=== PATIENT | male | born 1945 | race Caucasian/White ===

== ENCOUNTER 2020-02-02 14:37 | Outpatient (CLI) | payer MEDICARE, OTHER | END 2020-02-02 23:59 | disposition critical access hospital (66) | LOC: EMS 14:37 | PROVIDERS: ATTEND Surgery | DX: R29.810 Facial weakness (principal); R53.1 Weakness | CPT/HCPCS: A0425; A0427 ==

== ENCOUNTER 2020-02-02 14:53 | Emergency (ER) | payer MEDICARE, OTHER ==
--- NOTE | 2020-02-02 14:56 | ED Physician Documentation ---
PD HPI FOCAL NEURO - Stated complaint Stated Complaint: STROKE LIKE SYMPTOMS - History obtained from History obtained from: Patient, EMS - History of Present Illness Timing - onset: How many minutes ago (45) Timing - duration: Minutes (30) Timing - details: Abrupt onset, Now resolved (resolved enroute by EMS. No symptoms now.) Severity of deficit: Severe Weakness: Face, Arm, Leg, Left Numbness: Face, Arm, Leg, Left Associated symptoms: No: Headache, Nausea / vomiting, Syncope, Fall, Head injury, Fever Contributing factors: negative: Anticoagulated, Vascular dz, Atrial fibrillation Baseline status: positive: A&OX3, ambulatory, indep Similar symptoms before: Has not had sx before Review of Systems Constitutional: denies: Fever Nose: denies: Rhinorrhea / runny nose, Congestion Throat: denies: Sore throat Cardiac: denies: Chest pain / pressure, Palpitations Respiratory: denies: Cough GI: denies: Nausea, Vomiting, Diarrhea Skin: denies: Abrasion (s), Laceration (s) Neurologic: denies: Near syncope, Headache, Head injury PD PAST MEDICAL HISTORY - Past Medical History Cardiovascular: None Respiratory: None Neuro: Parkinson's (and has Neurologist at [facility] for this. ) Endocrine/Autoimmune: None GI: None - Present Medications Home Medications: Ambulatory Orders Medication Instructions Recorded Confirmed Acyclovir 400 mg PO TID PRN 02/02/20 02/02/20 Carbidopa/Levodopa [Rytary ER 1 tab QID 02/02/20 02/02/20 23.75 mg-95 mg Cap] Cholecalciferol [Vitamin D3] 2,000 unit DAILY 02/02/20 02/02/20 Magnesium 1 tab DAILY 02/02/20 02/02/20 Melatonin 5 mg PO QPM 02/02/20 02/02/20 Midodrine 5 mg DAILY 02/02/20 02/02/20 Mirabegron [Myrbetriq] 25 mg DAILY 02/02/20 02/02/20 Rasagiline [Azilect] 1 tab DAILY 02/02/20 02/02/20 Sildenafil Citrate 100 mg PO PRN 02/02/20 02/02/20 clonazePAM [Clonazepam] 1 tab QPM 02/02/20 02/02/20 - Allergies Allergies/Adverse Reactions: Allergies Allergy/AdvReac Type Severity Reaction Status Date / Time No Known Drug Allergies Allergy Verified 02/02/20 15:05 - Living Situation Living Situation: reports: With spouse/s.o. Living Arrangement: reports: At home - Social History Does the pt smoke?: No Does the pt drink ETOH?: No Does the pt have substance abuse?: No - Family History Family history: denies: Cerebral aneurysm - POLST Patient has POLST: No PD ED PE NORMAL - Vitals Vital signs reviewed: Yes - General General: Alert and oriented X 3, No acute distress, Well developed/nourished - HEENT HEENT: Atraumatic, Pharynx benign - Neck Neck: Supple, no meningeal sign, No adenopathy, No bruit - Cardiac Cardiac: RRR, No murmur - Respiratory Respiratory: Clear bilaterally - Abdomen Abdomen: Soft, Non tender - Male Male : Deferred - Rectal Rectal: Deferred - Back Back: No CVA TTP - Derm Derm: Normal color, Warm and dry - Extremities Extremities: No deformity, No tenderness to palpate, Normal ROM s pain, No edema, No calf tenderness / cord - Neuro Neuro: Alert and oriented X 3, pricing lead 2-12 intact, No motor deficit, No sensory deficit, Normal speech, Other Eye Opening: Spontaneous Motor: Obeys Commands Verbal: Oriented GCS Score: 15 NIHSS - Level of Consciousness Level of consciousness: (0) Alert, Keenly responsive LOC Questions: (0) Answers both Q's correct LOC Commands: (0) Performs both correctly - Gaze Best Gaze: (0) Normal - Visual Visual: (0) No loss - Facial Palsy Facial Palsy: (0) Normal, symmetrical movement - Motor Arms (both separate) Motor Arm (right): (0) No drift Motor Arm (left): (0) No drift - Motor Legs (both separate) Motor Leg (right): (0) No drift Motor Leg (left): (0) No drift - Limb Ataxia Limb Ataxia: (0) Absent - Sensory Sensory: (0) Normal - Best Language Best Language: (0) No aphasia - Dysarthria Dysarthria: (0) Normal - Extinction and Inattention (formally neg Extinction and inattention: (0) No abnormality - Total Score/Results Total Score/Result: 0 Results - Vitals Vitals: Vital Signs - 24 hr 02/02/20 02/02/20 02/02/20 15:16 15:34 15:35 Temperature 36.6 C Heart Rate 70 70 71 Respiratory 19 17 17 Rate Blood Pressure 125/64 125/67 125/64 O2 Saturation 100 100 100 02/02/20 02/02/20 02/02/20 16:05 16:35 17:05 Temperature Heart Rate 70 68 64 Respiratory 16 15 16 Rate Blood Pressure 125/67 140/79 H 157/96 H O2 Saturation 99 100 100 02/02/20 02/02/20 02/02/20 17:35 17:48 17:53 Temperature Heart Rate 68 67 78 Respiratory 14 14 15 Rate Blood Pressure 177/93 H 179/102 H 161/98 H O2 Saturation 100 100 99 Oxygen O2 Source Room air - EKG (time done) 15:11 Rate: Rate (enter#) (69) Rhythm: NSR [place]: Normal Intervals: Normal MT QRS: Normal Ischemia: Normal ST segments. No: ST elevation c/w ischemia, ST depression - Labs Labs: Laboratory Tests 02/02/20 02/02/20 02/02/20 15:12 15:12 15:12 WBC 5.1 RBC 3.66 L Hgb 12.3 L Hct 35.8 L MCV 97.8 H MCH 33.6 H MCHC 34.4 RDW 13.3 Plt Count 132 MPV 9.5 Neut # (Auto) 2.6 Lymph # (Auto) 1.8 [place] # (Auto) 0.5 Eos # (Auto) 0.1 Baso # (Auto) 0.0 Absolute Nucleated RBC 0.00 Nucleated RBC % 0.0 ESR PT INR Sodium 133 L Potassium 4.2 Chloride 99 L Carbon Dioxide 26 Anion Gap 8.0 BUN 22 H Creatinine 1.0 Estimated GFR (MDRD) 73 L Glucose 133 H POC Whole Bld Glucose Calcium 8.7 Magnesium 2.2 Total Bilirubin 2.1 H AST 27 ALT < 10 L Alkaline Phosphatase 69 Total Protein 5.9 L Albumin 3.9 Globulin 2.0 L Albumin/Globulin Ratio 2.0 Lipase 40 TSH 1.54 Ethyl Alcohol < 5.0 02/02/20 02/02/20 02/02/20 15:12 15:12 15:13 WBC RBC Hgb Hct MCV MCH MCHC RDW Plt Count MPV Neut # (Auto) Lymph # (Auto) [place] # (Auto) Eos # (Auto) Baso # (Auto) Absolute Nucleated RBC Nucleated RBC % ESR 5 PT 11.9 INR 1.0 Sodium Potassium Chloride Carbon Dioxide Anion Gap BUN Creatinine Estimated GFR (MDRD) Glucose POC Whole Bld Glucose 116 H Calcium Magnesium Total Bilirubin AST ALT Alkaline Phosphatase Total Protein Albumin Globulin Albumin/Globulin Ratio Lipase TSH Ethyl Alcohol - Rads (name of study) head CT Radiology: Prelim report reviewed, Discussed with rads (prior right cerebellar CVA; no acute process), See rad report head/neck angio Radiology: Prelim report reviewed, Discussed with rads (right M1 into M2 thrombus with some collateral formation distal. ), See rad report PD MEDICAL DECISION MAKING - ED course Complexity details: reviewed results (No acute changes on regular CT scan. His angios shows a large thrombus clot burden at the right M1 M2 M2 distribution. There is some distal collateral flow which would account likely for his restored symptoms or improved symptoms. However there is still a large clot burden at risk for more definitive occlusion. I talked with Dr. Lopez who is on for [facility] stroke neurology who will interview the patient and examined by tele- stroke and is advocating alteplase reperfusion and transfer for possible endovascular intervention.), considered differential (Also consideration of TIA versus CVA. We will get imaging studies urgently.), d/w patient, d/w senior research consultant (Dr. Lopez, Stroke Neurology at [facility]) - Critical Care Time(min): 45 Time Includes: Direct patient care, Reassess patient, Document care, Medical consult Data interpretation: Labs, See progress note Departure - Departure Disposition: 02 Transfer Acute Care Hosp Clinical Impression: Acute left-sided weakness CVA (cerebral vascular accident) Qualifiers: CVA mechanism: thrombosis Precerebral and cerebral artery: middle cerebral artery Laterality of affected vessel: right Qualified Code(s): I63.311 - Cerebral infarction due to thrombosis of right middle cerebral artery Condition: Stable Record reviewed to determine appropriate education?: Yes Discharge Date/Time: 02/02/20 18:15
[2020-02-02] MEDS ORDERED: SODIUM CHLORIDE 0.9% 1,000 ML IV ONE (14:57)
[2020-02-02] MEDS ORDERED: IOVERSOL 320 100 ML VIAL IVP ONE (15:17)
[2020-02-02 15:20] LABS: BASOPHILS % (AUTO) 0.4 %; EOSINOPHILS # (AUTO) 0.1 10^3/uL (0.0-0.7); EOSINOPHILS % (AUTO) 1.8 %; HGB - HEMOGLOBIN 12.3 g/dL (14.0-18.0); LYMPHOCYTES # (AUTO) 1.8 10^3/uL (1.5-3.5); LYMPHOCYTES % (AUTO) 35.9 %; MEAN CORPUSCULAR HEMOGLOBIN 33.6 pg (27.0-31.0); MEAN CORPUSCULAR HGB CONC 34.4 g/dL (32.0-36.0); MEAN CORPUSCULAR VOLUME 97.8 fL (80.0-94.0); MEAN PLATELET VOLUME 9.5 fL (7.4-11.4); MONOCYTES # (AUTO) 0.5 10^3/uL (0.0-1.0); MONOCYTES % (AUTO) 10.4 %; NEUTROPHILS # (AUTO) 2.6 10^3/uL (1.5-6.6); NEUTROPHILS % (AUTO) 51.3 %; PLT - PLATELET COUNT 132 10^3/uL (130-450); RED BLOOD COUNT 3.66 10^6/uL (4.70-6.10); RED CELL DISTRIBUTION WIDTH 13.3 % (12.0-15.0); WHITE BLOOD COUNT 5.1 x10^3/uL (4.8-10.8)
[2020-02-02 15:25] LABS: PT - PROTHROMBIN TIME 11.9 secs (9.9-12.6)
--- NOTE | 2020-02-02 15:32 | CT Report ---
Reason: right facial droop/arm and leg weakness acute Procedure Date: 02/02/2020 Accession Number: [id number] / [id number] Procedure: CT - Head W/O Stroke Protocol CPT Code: Final Report FULL RESULT: CT HEAD WITHOUT CONTRAST INDICATION: 74-year-old male. Right facial droop and arm/leg weakness. Concern for acute CVA. TECHNIQUE: Sequential 5 mm axial images were obtained through the brain. In accordance with CT protocol optimization, one or more of the following dose reduction techniques were utilized for this exam: automated exposure control, adjustment of mA and/or KV based on patient size, or use of iterative reconstructive technique. COMPARISON: None. FINDINGS: There is generalized prominence of the cerebral cortical sulci, considered within normal limits for stated age. Ventricular size is normal. No hydrocephalus. There is excessive noise (quantum mottle artifact) on brain window images, presumably related to low-dose technique. This decreases the sensitivity to detection of subtle parenchymal abnormality such as acute ischemic infarction. However, grossly the rothman-white differentiation in the supratentorial brain appears preserved. Well-defined, thin, wedge-shaped focus of encephalomalacia is demonstrated posteriorly in the right cerebellum, consistent with the sequela of remote, embolic type ischemic infarction. There is no intracranial hemorrhage or abnormal extra-axial fluid collection. No mass effect or midline shift. The skull and skull base appear intact. The middle ear cavities and mastoid air cells appear well aerated and clear. The imaged paranasal sinuses appear well aerated and clear. IMPRESSION: 1. A focus of encephalomalacia is identified in the posterior right cerebellum, consistent with the sequela of remote, embolic type infarction. 2. No acute intracranial pathology is identified. In particular, there is no intracranial hemorrhage, and there is no CT evidence of an acute large vessel territory cortical infarction (the ASPECTS appears to equal 10 bilaterally). However, it should be noted that early and small infarctions can be missed on CT. Therefore consider further evaluation with MRI as clinically warranted. The critical test notification system was initiated by Dr. Hieu Lieberman at 03:20 PM on 02/02/2020. The above critical test findings were discussed with Dr. Tino Segura by Dr. Hieu Lieberman at 03:30 PM on 02/02/2020.
[2020-02-02 15:43] LABS: ALBUMIN 3.9 g/dL (3.2-5.5); ALKALINE PHOSPHATASE 69 IU/L (42-121); ALT ALANINE AMINOTRANSFERASE < 10 IU/L (10-60); AST ASPARTATE AMINOTRANSFERASE 27 IU/L (10-42); BILIRUBIN,TOTAL 2.1 mg/dL (0.2-1.0); BUN - BLOOD UREA NITROGEN 22 mg/dL (6-20); CALCIUM 8.7 mg/dL (8.5-10.3); CARBON DIOXIDE - CO2 26 mmol/L (21-32); CHLORIDE 99 mmol/L (101-111); GLUCOSE 133 mg/dL (70-100); LIPASE 40 U/L (22-51); MAGNESIUM 2.2 mg/dL (1.7-2.8); SODIUM 133 mmol/L (135-145); TOTAL PROTEIN 5.9 g/dL (6.7-8.2)
--- NOTE | 2020-02-02 16:05 | CT Report ---
Reason: right facial droop and arm/leg weakness Procedure Date: 02/02/2020 Accession Number: [id number] / [id number] Procedure: CT - ANGIO NECK W CPT Code: Final Report FULL RESULT: CT ANGIOGRAM NECK INDICATION: 74-year-old male. Right facial droop and right arm and leg weakness today. No symptoms at time of exam. TECHNIQUE: 80 cc of Optiray 320 contrast were injected at a rapid rate through a large bore, right antecubital intravenous catheter. The neck was scanned helically and the data was reconstructed into 0.5 mm axial images. In addition, MIP reconstructions have been generated in multiple projections to allow better assessment of the extracranial carotid and vertebral arteries. COMPARISON: None. FINDINGS: There is a four-vessel aortic arch, the left vertebral artery arising directly from the arch as the third branch. No significant stenoses are identified in the first order, supra-aortic arteries. Right Carotid Artery: There is beam hardening artifact from dense contrast in adjacent venous structures that limits assessment of the common carotid artery, particularly the proximal common carotid artery. Grossly no pathology is demonstrated. There is minor, circumferential wall thickening at the bifurcation, likely representing noncalcified atherosclerotic plaque. No associated stenosis. The extracranial ICA is widely patent throughout. Left Carotid Artery: There is minor, partially calcified plaque at the carotid bifurcation without associated stenosis. Right Vertebral Artery: This is the dominant vertebral artery in this individual. It appears patent from its origin to its distal V3 segment without significant narrowing. Left Vertebral Artery: Mildly hypoplastic. Patent from origin to distal V3 segment without significant focal narrowing. IMPRESSION: Unremarkable study. 1. There is atherosclerotic disease at the carotid bifurcations without associated stenosis. 2. No evidence of dissection or significant stenosis in the extracranial vertebral arteries.
--- NOTE | 2020-02-02 16:09 | CT Report ---
Reason: right facial droop, arm/leg weakness acutely Procedure Date: 02/02/2020 Accession Number: [id number] / [id number] Procedure: CT - ANGIO HEAD W/WO CPT Code: Final Report FULL RESULT: CT ANGIOGRAM HEAD AND POSTCONTRAST HEAD CT INDICATION: 74-year-old male. Right facial droop and right arm/leg weakness today. No symptoms at time of exam. TECHNIQUE: CT angiogram head 80 cc of Optiray 320 contrast were injected at a rapid rate through a large bore, antecubital intravenous catheter. The head was scanned helically during arterial phase. The data was reconstructed into 0.5 mm axial images. In addition, MIP reconstructions have been generated in multiple projections to allow better evaluation of the intracranial arteries. Postcontrast head CT Sequential 5 mm axial images were obtained through the brain following the CT angiogram. In accordance with CT protocol optimization, one or more of the following dose reduction techniques were utilized for this exam: automated exposure control, adjustment of mA and/or KV based on patient size, or use of iterative reconstructive technique. COMPARISON: None. FINDINGS: CT angiogram head There is minor calcified atherosclerotic plaque in the carotid siphons without significant associated ICA stenosis. No ICA aneurysm is identified. The A1 segment for the left anterior cerebral artery is very mildly hypoplastic with larger right A1 segment. An anterior communicating artery is demonstrated. There appears to be good filling of the A2 and distal ELLE branches bilaterally. No obvious ELLE branch occlusion is identified. The left middle cerebral artery is unremarkable. No aneurysm is demonstrated and there is no obvious occlusion or hemodynamically significant stenosis affecting the main branches of the left MCA. On the right there appears to be intraluminal thrombus in the very distal most aspects of the M1 segment, extending into the proximal M2 branches for both the anterior and posterior division. The posterior division is significantly larger. The intraluminal thrombus occludes the proximal M2 branch for the posterior division over a distance of roughly 10 mm (see image 104 of series #11). There is intraluminal contrast more distally in the main trunk for the posterior division, probably filling in a retrograde fashion through leptomeningeal collaterals. The M2 branch for the anterior division is occluded over a distance of roughly 4-5 mm from the origin. There is filling more distally, also probably retrograde and through leptomeningeal collaterals. Posterior circulation: The vertebral arteries and PICAs are patent. The basilar artery is widely patent throughout. There is filling of both superior cerebellar arteries. The small caliber limits evaluation for possible stenosis. The main branches of the left [employer]IST are widely patent. The P1 segment for the right posterior cerebral artery is developmentally absent. There is a large right posterior communicating artery that supplies the P2 and distal right [employer]IST branches. This represents a known anatomical variant ( origin of the right [employer] SPECIALIST). There appears to be a small left posterior communicating artery. No aneurysms are seen arising from the basilar artery trunk or apex. Postcontrast head CT No enhancing space-occupying mass lesion is demonstrated. There appears to be normal intravascular contrast enhancement in the dural venous sinuses and deep venous structures. IMPRESSION: CTA head 1. There is intraluminal thrombus in the distal M1 segment of the right MCA with extension into the proximal M2 branches for the anterior and posterior divisions. The posterior division is largest. The intraluminal thrombus occludes the proximal 10 mm. There is intraluminal contrast distal to this level, the artery probably filling in a retrograde fashion through leptomeningeal collaterals. 2. Otherwise unremarkable intracranial CT angiogram. Postcontrast head CT No enhancing space-occupying mass lesion is demonstrated. The call report notification system was initiated by Dr. Hieu Lieberman at 03:57 PM on 02/02/2020. Dr. Segura was busy providing patient care and was not available to receive a preliminary report for this examination. For this reason a preliminary report was called to Roopa (ED charge nurse) following interpretation on 02/02/2020 at approximately 1605.
[2020-02-02] MEDS ORDERED: ALTEPLASE 81 MG in WATER FOR INJECTION,STERILE 100 ML IV STA (16:59)
[2020-02-02] MEDS ORDERED: ENALAPRILAT 1.25 MG/ML VIAL IVP STA (17:43)
[2020-02-02 17:53] VITALS: BP 161/98
[2020-02-02] MEDS ORDERED: ALTEPLASE IV ONE (18:00)
[2020-02-02] MEDS ORDERED: ALTEPLASE 8.4 MG in WATER FOR INJECTION,STERILE 8.4 ML IV ONE (18:00)
[2020-02-02] MEDS ORDERED: WATER FOR INJECTION STERILE IV ONE (18:00)
== END 2020-02-02 18:15 | disposition short-term general hospital (02) ==
LOC: ED 14:53
DX: I63.311 Cerebral infarction due to thrombosis of right middle cerebral artery (principal); G20 Parkinson's disease
CPT/HCPCS: 36415; 70450; 70496; 70498; 80053; 83690; 83735; 84443; 85025; 85610; 85651; 93005; 99285; 99291; J2997; Q9967; 80320

== ENCOUNTER 2023-08-11 09:18 | Outpatient (CLI) | payer MEDICARE, OTHER ==
--- NOTE | 2023-08-11 15:19 | XRAY Report ---
PROCEDURE: Hips 2V BILAT INDICATIONS: SACROILIAC JOINT PAIN,LEFT, HIP PAIN LEFT TECHNIQUE: 2 views of the hip were acquired. COMPARISON: None. FINDINGS: Bones: No fractures or dislocations. No suspicious bony lesions. Mild hip joint space narrowing a nd periarticular osteophyte formation bilaterally. Soft tissues: No suspicious soft tissue calcifications or masses. IMPRESSION: Bilateral hip osteoarthritis. No acute fracture. No osseous lesion. If symptoms and/or clinical suspi cion for pathology continue, further assessment with repeat plain films, or advanced imaging (e.g., C T, MRI, or bone scan) is recommended for further assessment. Reviewed by: Pollo Amaral MD on 08/11/2023 3:18 PM PST Approved by: Pollo Amaral MD on 08/11/2023 3:18 PM PST Station ID: [id number]
--- NOTE | 2023-08-11 15:19 | XRAY Report ---
PROCEDURE: Lumbar Spine Complete INDICATIONS: SACROILIAC JOINT PAIN,LEFT, HIP PAIN LEFT TECHNIQUE: 3 views of the lumbar spine were acquired. COMPARISON: None. FINDINGS: Bones: 5 [id number] vertebrae are present. There is normal bony alignment. No vertebral body compression fractures. No suspicious bony lesions. Soft tissues: Overlying bowel gas pattern is normal. No suspicious soft tissue calcifications. IMPRESSION: No acute fracture. No osseous lesion. If symptoms and/or clinical suspicion for patholog y continue, further assessment with repeat plain films, or advanced imaging (e.g., CT, MRI, or bone s can) is recommended for further assessment. Reviewed by: Pollo Amaral MD on 08/11/2023 3:18 PM PST Approved by: Pollo Amaral MD on 08/11/2023 3:18 PM PST Station ID: [id number]
== END 2023-08-11 09:19 | disposition home or self-care (01) ==
LOC: DI 09:18
PROVIDERS: ATTEND Family Medicine
DX: M53.3 Sacrococcygeal disorders, not elsewhere classified (principal); M16.0 Bilateral primary osteoarthritis of hip

== ENCOUNTER 2023-09-10 07:13 | Outpatient (CLI) | payer MEDICARE, OTHER | END 2023-09-10 07:14 | disposition short-term general hospital (02) | LOC: EMS 07:13 | DX: R06.03 Acute respiratory distress (principal); R09.89 Other specified symptoms and signs involving the circulatory and respiratory systems; I48.91 Unspecified atrial fibrillation | CPT/HCPCS: A0425; A0429 ==

== ENCOUNTER 2023-12-16 03:01 | Outpatient (CLI) | payer MEDICARE, OTHER | END 2023-12-16 03:02 | disposition critical access hospital (66) | LOC: EMS 03:01 | DX: T83.83XA Hemorrhage due to genitourinary prosthetic devices, implants and grafts, initial encounter (principal); N48.89 Other specified disorders of penis | CPT/HCPCS: A0425; A0429 ==

== ENCOUNTER 2023-12-16 03:21 | Emergency (ER) | payer MEDICARE, OTHER ==
--- NOTE | 2023-12-16 03:32 | ED Physician Documentation ---
History of Present Illness - Stated complaint Stated Complaint: CATH ISSUES - History obtained from History obtained from: Patient, EMS - Additonal information Additional information: The patient is brought to the emergency department by EMS for chief complaint of blood in urine after pulling on catheter. Patient states he does not really remember the incident. He does have Parkinson's disease and lives at home place, due to parkinsonian dementia. The patient denies any abdominal pain. Medics state that the staff stated they had see blood in his urine after he pulled the catheter they were concerned. The patient does take Eliquis. Medics have not noted any blood leaking out of the patient's urethra around the catheter. Patient has no complaints whatsoever. PD PAST MEDICAL HISTORY - Past Medical History Cardiovascular: None Respiratory: None Neuro: Parkinson's (and has Neurologist at [facility] [place] for this. ) Endocrine/Autoimmune: None GI: None : None HEENT: None Psych: None Musculoskeletal: None Derm: None - Past Surgical History Past Surgical History: Yes - Present Medications Home Medications: Ambulatory Orders Medication Instructions Recorded Confirmed Acyclovir 400 mg PO TID PRN 02/02/20 02/02/20 Carbidopa/Levodopa [Rytary ER 1 tab QID 02/02/20 02/02/20 23.75 mg-95 mg Cap] Cholecalciferol [Vitamin D3] 2,000 unit DAILY 02/02/20 02/02/20 Magnesium 1 tab DAILY 02/02/20 02/02/20 Melatonin 5 mg PO QPM 02/02/20 02/02/20 Midodrine [ProAmatine] 5 mg DAILY 02/02/20 02/02/20 Mirabegron [Myrbetriq] 25 mg DAILY 02/02/20 02/02/20 Rasagiline [Azilect] 1 tab DAILY 02/02/20 02/02/20 Sildenafil Citrate 100 mg PO PRN 02/02/20 02/02/20 clonazePAM [Clonazepam] 1 tab QPM 02/02/20 02/02/20 - Allergies Allergies/Adverse Reactions: Allergies Allergy/AdvReac Type Severity Reaction Status Date / Time No Known Drug Allergies Allergy Verified 02/02/20 15:05 - Social History Does the pt smoke?: No Smoking Status: Never smoker Does the pt drink ETOH?: No Does the pt have substance abuse?: No - Immunizations Immunizations are current?: Yes - POLST Patient has POLST: No PD ED PE NORMAL - Vitals Vital signs reviewed: Yes - General General: No acute distress, Well developed/nourished, Other (Alert, pleasant, conversant.) - HEENT HEENT: Atraumatic, PERRL, EOMI, Moist mucous membranes - Neck Neck: Supple, no meningeal sign - Respiratory Respiratory: No respiratory distress - Abdomen Abdomen: Soft, Non tender, Non distended - Male Male : 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 Mild bloody residue around penile glans and urethral meatus but no active oozing or leakage of blood around the catheter. Red urine noted in Maxwell catheter tubing, but no urine in bag.), Other - Derm Derm: Normal color, Warm and dry, No rash - Extremities Extremities: No deformity - Neuro Neuro: Alert and oriented X 3 - Psych Psych: Normal mood, Normal affect Results - Vitals Vitals: Vital Signs - 24 hr 12/16/23 03:27 Temperature 36.2 C L Heart Rate 83 Respiratory 16 Rate Blood Pressure 130/93 H O2 Saturation 98 Oxygen O2 Source Room air PD Medical Decision Making - ED course Complexity details: considered differential, d/w patient ED course: The patient appeared quite comfortable and he did not have any evidence of urethral traumatization. He did have a moderate amount of blood in his urine. I discussed the case with Dr. Chaparro Of urology, who recommended running a couple of liters through the patient's bladder over the next couple of hours to make sure that the urine mostly cleared. This was done and by the end of the second liter, his urine had mostly cleared. It was light red-tinged and no clot s were visible. I did not feel further testing would be helpful at this point. A new three-way catheter had been placed for the irrigation and was kept in place. Patient was stable for discharge home. We have discussed the need for follow-up with his urologist as scheduled and the usual indications for return. Departure - Departure Disposition: 01 Home, Self Care Clinical Impression: Hematuria Qualifiers: Hematuria type: gross Qualified Code(s): R31.0 - Gross hematuria Condition: Stable Instructions: ED Catheter Care Maxwell Comments: There is no evidence of any compromise of the urethra itself, and there is no blood leaking around the catheter. Your case has been discussed with the on-call urologist who requested that we irrigate your bladder with a couple liters of IV fluid and this was done.. You may have blood in Your urine for the next couple of days because of the Eliquis he is taking, but that should be expected to resolve on its own. Note to staff: The urologist has strongly recommended that the Eliquis be discontinued, secondary to the patient's inability to reason and leave his catheter alone in the setting of anticoagulation and increased risk of significant bleeding. However, this is a conversation that Mr. Jane and his guardians will have to have.
[2023-12-16] MEDS: LIDOCAINE 2% URO-JET 5 ML SYRINGE UR STA (04:17)
[2023-12-16 05:56] VITALS: O2SAT 100
[2023-12-16 09:48] VITALS: BP 132/74
== END 2023-12-16 09:48 | disposition home or self-care (01) ==
LOC: EDUNIT# → ED 03:21
DX: R31.0 Gross hematuria (principal); G20.A1 Parkinson's disease without dyskinesia, without mention of fluctuations; F02.80 Dementia in other diseases classified elsewhere, unspecified severity, without behavioral disturbance, psychotic disturbance, mood disturbance, and anxiety; Z79.01 Long term (current) use of anticoagulants
CPT/HCPCS: 51700; 99284

== ENCOUNTER 2023-12-16 09:50 | Outpatient (CLI) | payer MEDICARE, OTHER | END 2023-12-16 23:59 | disposition home or self-care (01) | LOC: EMS 09:50 | PROVIDERS: ATTEND Emergency Medicine | DX: T83.83XA Hemorrhage due to genitourinary prosthetic devices, implants and grafts, initial encounter (principal); R41.0 Disorientation, unspecified; G20.A1 Parkinson's disease without dyskinesia, without mention of fluctuations; F02.80 Dementia in other diseases classified elsewhere, unspecified severity, without behavioral disturbance, psychotic disturbance, mood disturbance, and anxiety | CPT/HCPCS: A0425; A0428 ==

== ENCOUNTER 2023-12-20 12:56 | Outpatient (CLI) | payer MEDICARE, OTHER | END 2023-12-20 23:59 | disposition critical access hospital (66) | LOC: EMS 12:56 | DX: T83.021A Displacement of indwelling urethral catheter, initial encounter (principal); N48.89 Other specified disorders of penis | CPT/HCPCS: A0425; A0429 ==

== ENCOUNTER 2023-12-20 13:16 | Inpatient (IN) | payer MEDICARE, OTHER ==
--- NOTE | 2023-12-20 13:55 | ED Physician Documentation ---
History of Present Illness - Stated complaint Stated Complaint: CATH ISSUES - Chief complaint Chief Complaint: General - History obtained from History obtained from: Patient, EMS - History of Present Illness Timing: Today Pain level max: 0 Pain level now: 0 - Additonal information Additional information: 78-year-old male brought in by EMS for "catheter issues". There is no other history available from EMS. Upon review of his chart has a history of Parkinson's dementia, there is blood in the urinary bag. He was seen here recently for same, had bladder irrigation performed. He is on a DOAC and does frequently tug at his catheter. No reports of fevers or vomiting. Patient lives in a memory care unit. Review of Systems Constitutional: denies: Fever, Chills GI: denies: Nausea, Vomiting Skin: denies: Rash Musculoskeletal: denies: Neck pain, Back pain Neurologic: denies: Headache PD PAST MEDICAL HISTORY - Past Medical History Past Medical History: Yes Cardiovascular: None Respiratory: None Neuro: Parkinson's Endocrine/Autoimmune: None GI: None : None HEENT: None Psych: None Musculoskeletal: None Derm: None - Past Surgical History Past Surgical History: Yes - Present Medications Home Medications: Ambulatory Orders Medication Instructions Recorded Confirmed Acyclovir 400 mg PO TID PRN 02/02/20 02/02/20 Carbidopa/Levodopa [Rytary ER 1 tab QID 02/02/20 02/02/20 23.75 mg-95 mg Cap] Cholecalciferol [Vitamin D3] 2,000 unit DAILY 02/02/20 02/02/20 Magnesium 1 tab DAILY 02/02/20 02/02/20 Melatonin 5 mg PO QPM 02/02/20 02/02/20 Midodrine [ProAmatine] 5 mg DAILY 02/02/20 02/02/20 Mirabegron [Myrbetriq] 25 mg DAILY 02/02/20 02/02/20 Rasagiline [Azilect] 1 tab DAILY 02/02/20 02/02/20 Sildenafil Citrate 100 mg PO PRN 02/02/20 02/02/20 clonazePAM [Clonazepam] 1 tab QPM 02/02/20 02/02/20 - Allergies Allergies/Adverse Reactions: Allergies Allergy/AdvReac Type Severity Reaction Status Date / Time No Known Drug Allergies Allergy Verified 12/20/23 13:23 - Social History Does the pt smoke?: No Smoking Status: Never smoker Does the pt drink ETOH?: No Does the pt have substance abuse?: No - Immunizations Immunizations are current?: Yes - POLST Patient has POLST: No PD ED PE NORMAL - Vitals Vital signs reviewed: Yes - General General: No acute distress, Other (Alert, oriented to person and place.) - HEENT HEENT: Moist mucous membranes - Neck Neck: Supple, no meningeal sign - Cardiac Cardiac: RRR, Strong equal pulses - Respiratory Respiratory: No respiratory distress, Clear bilaterally - Abdomen Abdomen: Soft, Non tender, Non distended - Male Male : Other (There is blood in the patient's diaper near the urethral meatus, there is bloody drainage in the Maxwell catheter bag) - Derm Derm: Warm and dry - Extremities Extremities: Normal ROM s pain - Psych Psych: Normal mood, Normal affect Results - Vitals Vitals: Vital Signs - 24 hr 12/20/23 13:23 Temperature 36.8 C Heart Rate 69 Respiratory 16 Rate Blood Pressure 110/80 O2 Saturation 95 Oxygen O2 Source Room air - Labs Labs: Laboratory Tests 12/20/23 12/20/23 14:50 14:50 WBC 10.1 RBC 3.69 L Hgb 10.9 L Hct 33.3 L MCV 90.2 MCH 29.5 MCHC 32.7 RDW 15.5 H Plt Count 119 L MPV 10.6 Neut # (Auto) 8.5 H Lymph # (Auto) 0.6 L Gregory # (Auto) 0.9 Eos # (Auto) 0.0 Baso # (Auto) 0.0 Absolute Nucleated RBC 0.00 Nucleated RBC % 0.0 Sodium 133 L Potassium 4.4 Chloride 101 Carbon Dioxide 23 Anion Gap 9.0 BUN 28 H Creatinine 0.9 Estimated GFR (MDRD) 82 L Glucose 103 Calcium 9.2 PD Medical Decision Making - ED course Complexity details: reviewed old records, reviewed results, re-evaluated patient, considered differential, d/w patient, d/w center consultant ED course: 78-year-old male with a history of Parkinson's dementia presents with hematuria. His Maxwell catheter was a 22 [place], three-way catheter that had become clogged with clots. The catheter was removed and replaced. Irrigation performed with large amount of clots removed. Upon review of his medication administration record from his facility, appears that they held the Eliquis for 2 days but restarted it last night and gave a dose this morning. Discussed the case with Dr. Chaparro, urology, recommends observation for continuous bladder irrigation and stopping the eliquis. He states that if the patient does not clear with CBI over the next 24 hours, he can see the patient on Friday in the hospital. Discussed the case with Dr. Menendez, hospitalist who accepts. This document was made in part using voice recognition software. While efforts are made to proofread this document, sound alike and grammatical errors may occur. Departure - Departure Disposition: ED Place in Observation Clinical Impression: Hematuria Qualifiers: Hematuria type: gross Qualified Code(s): R31.0 - Gross hematuria Condition: Stable
[2023-12-20 15:03] LABS: BASOPHILS % (AUTO) 0.2 %; EOSINOPHILS % (AUTO) 0.3 %; HCT - HEMATOCRIT 33.3 % (42.0-52.0); HGB - HEMOGLOBIN 10.9 g/dL (14.0-18.0); LYMPHOCYTES # (AUTO) 0.6 10^3/uL (1.5-3.5); LYMPHOCYTES % (AUTO) 5.5 %; MEAN CORPUSCULAR HEMOGLOBIN 29.5 pg (27.0-31.0); MEAN CORPUSCULAR HGB CONC 32.7 g/dL (32.0-36.0); MEAN CORPUSCULAR VOLUME 90.2 fL (80.0-94.0); MEAN PLATELET VOLUME 10.6 fL (7.4-11.4); MONOCYTES # (AUTO) 0.9 10^3/uL (0.0-1.0); MONOCYTES % (AUTO) 9.2 %; NEUTROPHILS # (AUTO) 8.5 10^3/uL (1.5-6.6); NEUTROPHILS % (AUTO) 84.4 %; PLT - PLATELET COUNT 119 10^3/uL (130-450); RED BLOOD COUNT 3.69 10^6/uL (4.70-6.10); RED CELL DISTRIBUTION WIDTH 15.5 % (12.0-15.0); WHITE BLOOD COUNT 10.1 x10^3/uL (4.8-10.8)
[2023-12-20 15:13] LABS: CALCIUM 9.2 mg/dL (8.5-10.3); CREATININE 0.9 mg/dL (0.6-1.3); POTASSIUM 4.4 mmol/L (3.5-4.5)
[2023-12-20] MEDS ORDERED: ONDANSETRON 4 MG/2 ML VIAL IVP PRN (15:17)
[2023-12-20] MEDS ORDERED: ONDANSETRON ODT 4 MG TABLET TL PRN (15:17)
[2023-12-20] MEDS ORDERED: SODIUM CHLORIDE FLUSH 0.9% 10 ML SYRINGE IVP PRN (15:17)
[2023-12-20] MEDS: ACETAMINOPHEN 325 MG TABLET PO PRN (15:52)
--- NOTE | 2023-12-20 16:05 | PHARMACY PROGRESS NOTE ---
- Best Possible Medication History Admit Date and Time: 12/20/23 1517 Processed by: Pharmacy Medications reviewed in ED?: No Medication History completed: Yes Patient Interview: Completed Secondary Source(s): Pharmacy records, Insurance records, Facility MAR as ONLY source As the person ultimately responsible for medication therapy, providers are able to order a medication from an existing home medication list in [facility] via the "Reconcile Routine" prior to Confirmation of that medication by instructional support technician. Such practice is discouraged except when the physician, in their clinical judgment, deems that a medical need exists for a medication without regard to previous use.
--- NOTE | 2023-12-20 16:06 | HISTORY & PHYSICAL EXAMINATION ---
Chief Complaint - Chief Complaint Chief Complaint: Hematuria History of Present Illness - Admitted From Admitted From:: ED - History Obtained From Records Reviewed: Yes History obtained from: Patient, EMR Exam Limitations: Parkinson's dementia - History of Present Illness HPI Comment/Other: Patient is a 78-year-old male with a past medical history of Parkinson's dementia, embolic CVA, atrial fibrillation anticoagulated Eliquis who presented to the ED due to gross hematuria. Patient is on Eliquis for his atrial fibrillation and prior history of an embolic stroke and he frequently tugs at his catheter. He resides in a memory care unit. Workup in the ED showed a hemoglobin of 10.9. He was initiated on continuous bladder irrigation and his urine did clear up however there were many clots. During my evaluation, patient appeared to be having chills. He denies any chills prior to coming to the ED. It was felt that may be the chills could be due to the cold water from the CBI. He denied any chest pain or shortness of breath. He was not having any fevers. Denied any suprapubic tenderness. History - Past Medical History Cardiovascular: reports: None, Hypertension, Atrial fibrillation Respiratory: reports: None Neuro: reports: CVA, Parkinson's Endocrine/Autoimmune: reports: None GI: reports: None : reports: None HEENT: reports: None Psych: reports: None Musculoskeletal: reports: None Derm: reports: None MRSA Hx?: Yes - POLST Patient has POLST: No Meds/Allgy - Home Medications Home Medications: Ambulatory Orders Medication Instructions Recorded Confirmed Acyclovir 400 mg PO TID PRN 02/02/20 02/02/20 Carbidopa/Levodopa [Rytary ER 1 tab QID 02/02/20 02/02/20 23.75 mg-95 mg Cap] Cholecalciferol [Vitamin D3] 2,000 unit DAILY 02/02/20 02/02/20 Magnesium 1 tab DAILY 02/02/20 02/02/20 Melatonin 5 mg PO QPM 02/02/20 02/02/20 Midodrine [ProAmatine] 5 mg DAILY 02/02/20 02/02/20 Mirabegron [Myrbetriq] 25 mg DAILY 02/02/20 02/02/20 Rasagiline [Azilect] 1 tab DAILY 02/02/20 02/02/20 Sildenafil Citrate 100 mg PO PRN 02/02/20 02/02/20 clonazePAM [Clonazepam] 1 tab QPM 02/02/20 02/02/20 - Allergies Allergies/Adverse Reactions: Allergies Allergy/AdvReac Type Severity Reaction Status Date / Time No Known Drug Allergies Allergy Verified 12/20/23 13:23 Review of Systems - Constitutional Constitutional: reports: Chills. denies: Fatigue, Fever - Cardiovascular Cariovascular: reports: Irregular heart rate. denies: Palpitations, Chest pain, Edema, Lightheadedness, Syncope, Exertional dyspnea, Orthopnea - Respiratory Respiratory: denies: Cough, SOB at rest, SOB with exertion - Gastrointestinal Gastrointestinal: denies: Abdominal pain, Constipation, Diarrhea, Nausea, Vomiting - Genitourinary Genitourinary: reports: Hematuria. denies: Dysuria, Frequency, Urgency, Flank pain - Neurological Neurological: denies: General weakness, Focal weakness - All Other Systems All Other Systems: reports: Reviewed and negative Prior Level of Functionality: Resides in a memory care unit due to his Parkinson's dementia. Exam - Vital Signs Reviewed Vital Signs: Yes Vital Signs: Vital Signs x48h Temp Pulse Resp BP Pulse Ox 12/20/23 13:23 36.8 C 69 16 110/80 95 - Physical Exam General Appearance: positive: Mild distress Eyes Bilateral: positive: PERRL, EOMI Respiratory: positive: Chest non-tender, No respiratory distress, Breath sounds nml Cardiovascular: positive: No murmur, No gallop Abdomen: positive: Non-tender, No organomegaly, Nml bowel sounds, No distention Extremities: positive: Non-tender, Full ROM, Nml appearance Neurologic/Psychiatric: positive: Oriented x3, Mood/affect nml Conclusion/Plan - Problem List (1) Hematuria Conclusion/Plan: --Exact etiology of hematuria is unknown however patient does pull at his Maxwell catheter while in his memory care unit and is on Eliquis. --Patient has been initiated on CBI in the ED we will continue this. --Collecting urine culture and urinalysis. Will start him on IV ceftriaxone as he was having chills. Although this may be due to the cold water in his CBI. --Will have urology coverage on Friday Qualifiers: Hematuria type: gross Qualified Code(s): R31.0 - Gross hematuria (2) Parkinson's disease dementia Conclusion/Plan: -- Patient resides in a memory care unit. He sees a neurologist through [facility]. --He does appear to have autonomic dysfunction and is on midodrine. --Resuming all home Parkinson's disease medications. (3) CVA (cerebral vascular accident) Conclusion/Plan: --History of an embolic CVA in 2019. Patient does not report any deficits after his CVA. Holding Eliquis. Qualifiers: CVA mechanism: thrombosis Precerebral and cerebral artery: middle cerebral artery Laterality of affected vessel: right Qualified Code(s): I63.311 - Cerebral infarction due to thrombosis of right middle cerebral artery (4) Atrial fibrillation Conclusion/Plan: --Continue metoprolol and digoxin. Holding home Eliquis. - Lab Results Fish Bones: 12/20/23 14:50 12/20/23 14:50 Core Measures - Anticipated LOS I expect patient to be DC'd or transferred within 96 hours.: Yes - DVT/VTE - Prophylaxis VTE/DVT Device ordered at admit?: Yes VTE/DVT Prophylaxis med ordered at admit?: No Not Ordered - Medical Reason: Contraindicated
[2023-12-20] MEDS ORDERED: ACETAMINOPHEN 325 MG TABLET PO PRN (16:15)
[2023-12-20] MEDS: CARBIDOPA/LEVODOPA ER 50 MG/200 MG TABLET PO SCH (17:01)
[2023-12-20] MEDS: clonazePAM 0.5 MG TABLET PO SCH (17:01)
[2023-12-20] MEDS: SODIUM CHLORIDE FLUSH 0.9% 10 ML SYRINGE IVP SCH (17:02)
[2023-12-20] MEDS: HYDROcod/ACETAM 5/325 MG TABLET PO PRN (17:40)
[2023-12-20 18:38] LABS: HCT - HEMATOCRIT 30.8 % (42.0-52.0); HGB - HEMOGLOBIN 10.1 g/dL (14.0-18.0)
[2023-12-20] MEDS: cefTRIAXone 2 GM in SODIUM CHLORIDE 0.9% MINIBAG 100 ML IV SCH (18:42)
[2023-12-20] MEDS: SODIUM CHLORIDE 0.9% IV STA (18:42)
[2023-12-20] MEDS: RASAGILINE 1 MG PO SCH (20:57)
[2023-12-20] MEDS: MELATONIN 5 MG PO SCH (20:57)
[2023-12-20] MEDS: ATORVASTATIN 10 MG TABLET PO SCH (21:15)
[2023-12-20] MEDS: QUEtiapine 100 MG TABLET PO SCH (21:16)
[2023-12-20] MEDS: QUEtiapine 25 MG TABLET PO SCH (21:16)
[2023-12-20] MEDS: MIDODRINE 2.5 MG TABLET PO SCH (21:16)
[2023-12-21] MEDS: HALOPERIDOL 5 MG/ML VIAL IM PRN (00:20)
[2023-12-21 05:38] LABS: BASOPHILS % (AUTO) 0.3 %; EOSINOPHILS % (AUTO) 0.1 %; HCT - HEMATOCRIT 30.5 % (42.0-52.0); HGB - HEMOGLOBIN 9.8 g/dL (14.0-18.0); LYMPHOCYTES # (AUTO) 0.7 10^3/uL (1.5-3.5); LYMPHOCYTES % (AUTO) 7.3 %; MEAN CORPUSCULAR HEMOGLOBIN 29.9 pg (27.0-31.0); MEAN CORPUSCULAR HGB CONC 32.1 g/dL (32.0-36.0); MEAN PLATELET VOLUME 11.4 fL (7.4-11.4); MONOCYTES # (AUTO) 0.4 10^3/uL (0.0-1.0); MONOCYTES % (AUTO) 4.5 %; NEUTROPHILS # (AUTO) 8.1 10^3/uL (1.5-6.6); NEUTROPHILS % (AUTO) 87.6 %; PLT - PLATELET COUNT 95 10^3/uL (130-450); RED BLOOD COUNT 3.28 10^6/uL (4.70-6.10); RED CELL DISTRIBUTION WIDTH 15.9 % (12.0-15.0); WHITE BLOOD COUNT 9.3 x10^3/uL (4.8-10.8)
[2023-12-21 05:50] LABS: INR 1.5 (0.8-1.2)
[2023-12-21 06:03] LABS: CALCIUM 8.6 mg/dL (8.5-10.3); POTASSIUM 4.1 mmol/L (3.5-4.5)
[2023-12-21] MEDS: VANCOMYCIN INJ 2 GM in SODIUM CHLORIDE 0.9% 500 ML IV SCH (08:31)
--- NOTE | 2023-12-21 08:45 | PROVIDER PROGRESS NOTE ---
Assessment/Plan - Problem List (1) Gram-positive bacteremia Assessment/Plan: --Blood cultures from 12/19 showing gram positive bacteremia. PCR positive for Enterococcus faecalis. Will start him on Vancomycin. He remains on as well ceftriaxone for now. --No urine culture available but etiology is believed to be the urine. --Repeat blood cultures in AM. --TTE ordered to rule out valvular vegetations. (2) Hematuria Qualifiers: Hematuria type: gross Qualified Code(s): R31.0 - Gross hematuria Assessment/Plan: (1) Hematuria Conclusion/Plan: --Appears to have an Enterococcus UTI. Hematuria may be as a result of this, exacerbated by him pulling on his eaton catheter and his Eliquis. --Patient has been initiated on CBI in the ED we will continue this. His urine has cleared up. --Unfortunately could not collect a UA and urine culture as CBI was running which could result in a false positive. Regardless he was started on IV antibiotics. --Will have urology coverage on Friday --Some meteal blood due to trauma of multiple catheter insertions. Qualifiers: Hematuria type: gross Qualified Code(s): R31.0 - Gross hematuria (2) Parkinson's disease dementia Conclusion/Plan: -- Patient resides in a memory care unit. He sees a neurologist through [facility]. --He does appear to have autonomic dysfunction and is on midodrine. --Resuming all home Parkinson's disease medications. (3) CVA (cerebral vascular accident) Conclusion/Plan: --History of an embolic CVA in 2019. Patient does not report any deficits after his CVA. Holding Eliquis. Qualifiers: CVA mechanism: thrombosis Precerebral and cerebral artery: middle cerebral artery Laterality of affected vessel: right Qualified Code(s): I63.311 - Cerebral infarction due to thrombosis of right middle cerebral artery (4) Atrial fibrillation Conclusion/Plan: --Continue metoprolol and digoxin. Holding home Eliquis. (4) CVA (cerebral vascular accident) Qualifiers: CVA mechanism: thrombosis Precerebral and cerebral artery: middle cerebral artery Laterality of affected vessel: right Qualified Code(s): I63.311 - Cerebral infarction due to thrombosis of right middle cerebral artery - Current Meds Current Meds: Current Medications Generic Name Dose Route Start Last Admin Trade Name Freq PRN Reason Stop Dose Admin Acetaminophen 650 mg 03/23/24 15:17 12/20/23 15:52 Acetaminophen 325 Mg Tablet PO 650 mg Q4HR PRN Administration Pain 1 to 4, or Fever Hydrocodone Bitart/Acetaminophen 1 tab 12/20/23 15:17 12/21/23 04:58 Hydrocod/Acetam 5/325 Mg Tablet PO 1 tab Q4HR PRN Administration Pain 5 to 7 Atorvastatin Calcium 20 mg 12/20/23 21:00 12/20/23 21:15 Atorvastatin 10 Mg Tablet PO 20 mg QPM AILYN Administration Carbidopa/Levodopa 2 tab 12/20/23 17:00 12/20/23 21:16 Carbidopa/Levodopa Er 50 Mg/200 Mg Tablet PO 2 tab QID AILYN Administration Clonazepam 0.5 mg 12/20/23 17:00 12/21/23 04:58 Clonazepam 0.5 Mg Tablet PO 0.5 mg Q12H AILYN Administration Haloperidol 5 mg 12/20/23 18:34 12/21/23 00:20 Haloperidol 5 Mg/Ml Vial IM 5 mg Q6H PRN Administration Agitation Ceftriaxone Sodium 2 gm/ 100 mls @ 200 mls/hr 12/20/23 18:00 12/20/23 19:38 Sodium Chloride IV Infused Q24H AILYN Infusion Vancomycin HCl 2 gm/ Sodium 500 mls @ 250 mls/hr 12/21/23 08:00 12/21/23 08:31 Chloride IV 250 mls/hr Q24H AILYN Administration Midodrine 10 mg 12/20/23 22:00 12/21/23 04:58 Midodrine 2.5 Mg Tablet PO 10 mg TID AILYN Administration Patient Own Med ( 5 each 12/20/23 21:00 12/20/23 20:57 Melatonin [Melatonin PO Not Given ] 5 Mg Tablet) QPM AILYN Patient Own Med ( 1 each 12/20/23 21:00 12/20/23 20:57 Rasagiline [Azilect] PO Not Given 1 Mg Tablet) HS AILYN Quetiapine Fumarate 50 mg 12/20/23 21:00 12/20/23 21:16 Quetiapine 25 Mg Tablet PO 50 mg BID AILYN Administration Quetiapine Fumarate 100 mg 12/20/23 21:00 12/20/23 21:16 Quetiapine 100 Mg Tablet PO 100 mg HS AILYN Administration Sodium Chloride 10 ml 12/20/23 17:00 12/21/23 00:17 Sodium Chloride Flush 0.9% 10 Ml Syringe IVP 10 ml 0100,0900,1700 AILYN Administration - Lab Result Fish Bone Diagrams: 12/21/23 05:29 12/21/23 05:29 - Additional Planning My Orders: My Active Orders 12/20/23 15:17 Activity Orders [RC] Q2HR IO [RC] IOSHIFT Incentive Spirometry - RT [RC] TID Initiate Bowel Care Protocol [RC] .protocol Initiate Line Care Protocol [RC] QSHIFT Initiate Personal Care Protoco [RC] .protocol Oxygen Therapy [RC] .PRN Vital Signs [RC] 0800,1600,0000 Acetaminophen [Tylenol] 650 mg PO Q4HR PRN HYDROcod/ACETAM 5/325 [Hammond 5/325] 1 tab PO Q4HR PRN Ondansetron Inj [Zofran Inj] 4 mg IVP Q6HR PRN Ondansetron Odt [Zofran Odt] 4 mg TL Q6HR PRN Sodium Chloride Flush 0.9% [Normal Saline Flush 0.9%] 10 ml IVP PRN PRN Code Status [OTHERS] Routine Condition of Patient [OTHERS] Routine DVT Prophylaxis [OTHERS] Routine 12/20/23 15:18 SCDs [] QSHIFT 12/20/23 15:20 Continuous Bladder Irrigation [] QSHIFT 12/20/23 15:21 UA w/ MICROSCOPIC, CULT IF [URIN] Stat 12/20/23 Dinner Regular Diet [DIET] Acetaminophen [Tylenol] 650 mg PO Q6H PRN 12/20/23 16:48 Blood Culture [CULTURE, BLOOD #1] [] Routine 12/20/23 16:55 Blood Culture [CULTURE, BLOOD #2] [] Routine 12/20/23 17:00 Carbidopa/Levodopa ER 50/200 [Sinemet Cr 50 mg/200 mg] 2 tab PO QID Sodium Chloride Flush 0.9% [Normal Saline Flush 0.9%] 10 ml IVP 0100,0900,1700 clonazePAM [KlonoPIN] 0.5 mg PO Q12H 12/20/23 18:00 cefTRIAXone [Rocephin] 2 gm Sodium Chloride 0.9% Minibag [Normal Saline 0.9% Minibag] 100 ml IV Q24H 12/20/23 18:34 Haloperidol Inj [Haldol Inj] 5 mg IM Q6H PRN 12/20/23 21:00 Atorvastatin [Lipitor] 20 mg PO QPM Patient Own Med 1 each PO HS Patient Own Med 5 each PO QPM QUEtiapine [SEROquel] 100 mg PO HS QUEtiapine [SEROquel] 50 mg PO BID 12/20/23 22:00 Midodrine [ProAmatine] 10 mg PO TID 12/21/23 Clinical Swallow Evaluation [ST] Routine 12/21/23 07:04 Echo Transthoracic Complete [ECHO] Routine 12/21/23 08:00 Multivitamin [Theragran] 1 tab PO DAILYWM Sodium Chloride 0.9% [Normal Saline 0.9%] 1,000 ml IV 100 mls/hr Vancomycin Inj [Vancomycin] 2 gm Sodium Chloride 0.9% [Normal Saline 0.9%] 500 ml IV Q24H 12/21/23 09:00 Digoxin [Lanoxin] 125 mcg PO DAILY Finasteride [Proscar] 5 mg PO DAILY Metoprolol Succinate [Toprol Xl] 25 mg PO DAILY Patient Own Med 1 each PO DAILY Patient Own Med 1 each PO DAILY Potassium Chloride [K-Dur] 20 meq PO DAILY 12/21/23 10:24 HEMOGLOBIN AND HEMATOCRIT [HEME] Q8H 12/21/23 21:00 traZODone [Desyrel] 50 mg PO HS 12/22/23 05:00 BMP - BASIC METABOLIC PANEL [CHEM] DAILYLAB CBC [CBC - COMP BLD CT W/AUTO DIFF] [HEME] DAILYLAB 12/22/23 09:00 Blood Culture [CULTURE, BLOOD #1] [RM] Routine Blood Culture [CULTURE, BLOOD #2] [RM] DAILY 12/23/23 05:00 BMP - BASIC METABOLIC PANEL [CHEM] DAILYLAB CBC [CBC - COMP BLD CT W/AUTO DIFF] [HEME] DAILYLAB 12/24/23 05:00 BMP - BASIC METABOLIC PANEL [CHEM] DAILYLAB CBC [CBC - COMP BLD CT W/AUTO DIFF] [HEME] DAILYLAB 12/25/23 05:00 BMP - BASIC METABOLIC PANEL [CHEM] DAILYLAB CBC [CBC - COMP BLD CT W/AUTO DIFF] [HEME] DAILYLAB Subjective - Subjective Patient Reports: Other (Lethargic this morning.) Nursing Reports: Confused (Overnight patient was confused and agitated.) Objective Vital Signs: Vital Signs - 24 hr 12/20/23 12/20/23 12/20/23 13:23 16:00 16:30 Temperature 36.8 C 36.6 C Heart Rate 69 101 H Heart Rate [ 109 H Radial] Respiratory 16 16 22 Rate Blood Pressure 110/80 131/83 H Blood Pressure 138/76 H [Right Brachial artery] O2 Saturation 95 93 97 12/20/23 12/20/23 12/21/23 18:09 19:30 00:00 Temperature 38 C H 37.6 C 36.5 C Heart Rate Heart Rate [ 87 70 Radial] Respiratory 18 24 Rate Blood Pressure Blood Pressure 98/54 L 85/62 L [Right Brachial artery] O2 Saturation 95 95 12/21/23 12/21/23 00:11 04:38 Temperature 36.5 C Heart Rate Heart Rate [ 59 L Radial] Respiratory 18 Rate Blood Pressure Blood Pressure 91/54 L 108/65 [Right Brachial artery] O2 Saturation 96 Oxygen O2 Source Room air I&O (Last 24 Hrs): Intake and Output Totals x24h 12/19/23 12/20/23 12/21/23 23:59 23:59 23:59 Intake Total 34557 6300 Output Total 8475 7850 Balance 2710 -1550 Neuro: Disoriented, Non Focal Cardiovascular: Regular rate, Normal S1, Normal S2 Respiratory: Breath sounds nml Abdomen: Soft Genitourinary: Meatal Blood - Results Results: Laboratory Results WBC 9.3 x10^3/uL (4.8-10.8) 12/21/23 05:29 RBC 3.28 10^6/uL (4.70-6.10) L 12/21/23 05:29 Hgb 9.8 g/dL (14.0-18.0) L 12/21/23 05:29 Hct 30.5 % (42.0-52.0) L 12/21/23 05:29 MCV 93.0 fL (80.0-94.0) 12/21/23 05:29 MCH 29.9 pg (27.0-31.0) 12/21/23 05:29 MCHC 32.1 g/dL (32.0-36.0) 12/21/23 05:29 RDW 15.9 % (12.0-15.0) H 12/21/23 05:29 Plt Count 95 10^3/uL (130-450) L 12/21/23 05:29 MPV 11.4 fL (7.4-11.4) 12/21/23 05:29 Neut # (Auto) 8.1 10^3/uL (1.5-6.6) H 12/21/23 05:29 Lymph # (Auto) 0.7 10^3/uL (1.5-3.5) L 12/21/23 05:29 [place] # (Auto) 0.4 10^3/uL (0.0-1.0) 12/21/23 05:29 Eos # (Auto) 0.0 10^3/uL (0.0-0.7) 12/21/23 05:29 Baso # (Auto) 0.0 10^3/uL (0.0-0.1) 12/21/23 05:29 Absolute Nucleated RBC 0.00 x10^3/uL 12/21/23 05:29 Nucleated RBC % 0.0 /100WBC 12/21/23 05:29 PT 16.0 secs (9.9-12.6) H 12/21/23 05:29 INR 1.5 (0.8-1.2) H 12/21/23 05:29 Sodium 134 mmol/L (135-145) L 12/21/23 05:29 Potassium 4.1 mmol/L (3.5-4.5) 12/21/23 05:29 Chloride 104 mmol/L (101-111) 12/21/23 05:29 Carbon Dioxide 22 mmol/L (21-32) 12/21/23 05:29 Anion Gap 8.0 (6-13) 12/21/23 05:29 BUN 24 mg/dL (6-20) H 12/21/23 05:29 Creatinine 1.0 mg/dL (0.6-1.3) 12/21/23 05:29 Estimated GFR (MDRD) 72 (>89) L 12/21/23 05:29 Glucose 88 mg/dL (74-104) 12/21/23 05:29 Lactic Acid 1.9 mmol/L (0.5-2.2) 12/20/23 18:32 Calcium 8.6 mg/dL (8.5-10.3) 12/21/23 05:29
[2023-12-21] MEDS ORDERED: traZODone 50 MG TABLET PO SCH (09:00)
[2023-12-21] MEDS ORDERED: SPIRONOLACTONE 25 MG TABLET PO SCH (09:00)
[2023-12-21] MEDS ORDERED: FARXIGA 5 MG PO SCH (09:00)
[2023-12-21] MEDS ORDERED: cefTRIAXone 2 GM in SODIUM CHLORIDE 0.9% MINIBAG 100 ML IV SCH (09:00)
[2023-12-21 10:29] LABS: HCT - HEMATOCRIT 30.9 % (42.0-52.0); HGB - HEMOGLOBIN 9.8 g/dL (14.0-18.0)
[2023-12-21] MEDS: MULTIVITAMIN TABLET PO SCH (10:43)
[2023-12-21] MEDS: DIGOXIN 125 MCG TABLET PO SCH (10:43)
[2023-12-21] MEDS: POTASSIUM CHLORIDE 20 MEQ TABLET PO SCH (10:43)
[2023-12-21] MEDS: FINASTERIDE 5 MG TABLET PO SCH (10:43)
[2023-12-21] MEDS: METOPROLOL SUCCINATE 25 MG TABLET PO SCH (10:44)
[2023-12-21] MEDS: SODIUM CHLORIDE 0.9% 1,000 ML IV SCH (10:44)
[2023-12-21] MEDS: PIMAVANSERIN TARTRATE 34 MG PO SCH (12:42)
[2023-12-21] MEDS: FARXIGA 10 MG PO SCH (13:42)
--- NOTE | 2023-12-21 13:47 | Discharge Plan ---
Discharge Plan Problem Reviewed?: Yes Disposition: 02 Transfer Acute Care Hosp Condition: Stable Diet: Cardiac Activity Restrictions: Activity as Tolerated No Smoking: If you smoke, Please STOP! Call for help.
--- NOTE | 2023-12-21 13:50 | DISCHARGE SUMMARY ---
Discharge Summary Admit Date: 12/20/23 Discharge Date: 12/21/23 Discharging Provider: John Alexis Code Status: Do Not Attempt Resuscitation Condition at Discharge: Stable Discharge Disposition: 02 Transfer Acute Care Hosp Discharge Facility Name: [facility] - DIAGNOSES Admission Diagnoses: Hematuria Discharge Diagnoses with Status of Each Condition: Hematuria Enterococcus bacteremia - HPI History of Present Illness: Patient is a 78-year-old male with a past medical history of Parkinson's dementia, embolic CVA, atrial fibrillation anticoagulated Eliquis who presented to the ED due to gross hematuria. Patient is on Eliquis for his atrial fibrillation and prior history of an embolic stroke and he frequently tugs at his catheter. He resides in a memory care unit. Workup in the ED showed a hemoglobin of 10.9. He was initiated on continuous bladder irrigation and his urine did clear up however there were many clots. During my evaluation, patient appeared to be having chills. He denies any chills prior to coming to the ED. It was felt that may be the chills could be due to the cold water from the CBI. He denied any chest pain or shortness of breath. He was not having any fevers. Denied any suprapubic tenderness. - HOSPITAL COURSE Hospital Course: Patient is a 78-year-old male with a past medical history of pulmonary embolus on Eliquis (diagnosed July 2023), atrial fibrillation, s/p mitral valve clip x 2, chronic Maxwell catheter, unspecified CHF, mitral valve endocarditis, Parkinson's dementia who presented to the ED at [facility] on 12/19 due to gross hematuria through his catheter and concern for blockage. Patient was started on CBI. His initial hemoglobin was 10.9. He was admitted and blood cultures were obtained. Patient was started on IV ceftriaxone due to concern for a urinary tract infection. He did also spike a fever with a Tmax of 38 C. Eliquis had been held on admission. The following day, blood cultures grew gram-positive cocci. PCR revealed Enterococcus faecalis. He was switched from ceftriaxone to IV vancomycin. We were able to obtain more history from the who revealed that patient recently stopped antibiotics on November 28 for a bout of endocarditis on his mitral valve. [facility] was contacted and the patient was accepted by cardiology for higher level of care and a SUZAN. He was made NPO prior to transfer. Patient was hemodynamically stable on date of transfer. His metoprolol and spironolactone were held on day of transfer due to low blood pressures. reported that he averages 90/60. His hematuria had improved significantly and CBI was dripping at a minimal rate. The exact reason he has a Maxwell catheter is unclear to me however reported that had been placed in August 2023 due to urinary incontinence. Since then he has been eval by urologist and failed a voiding trial. Patient does follow with a neurologist for his Parkinson's dementia and resides in a memory care unit called [facility] where he has been living since December 10. Did have a discussion with the , he is DNR/DNI. - ALLERGIES Allergies/Adverse Reactions: Allergies Allergy/AdvReac Type Severity Reaction Status Date / Time No Known Drug Allergies Allergy Verified 12/20/23 13:23 - MEDICATIONS Home Medications: Ambulatory Orders Medication Instructions Recorded Confirmed Midodrine [ProAmatine] 10 mg TID 02/02/20 12/20/23 Rasagiline [Azilect] 1 mg HS 02/02/20 12/20/23 clonazePAM [Clonazepam] 0.5 mg PO Q12H 02/02/20 12/20/23 Acetaminophen [Tylenol] 650 mg PO Q6H PRN 12/20/23 12/20/23 Apixaban [Eliquis] 5 mg PO BID 12/20/23 12/20/23 Atorvastatin [Lipitor] 20 mg PO HS 12/20/23 12/20/23 Carbidopa/Levodopa [Rytary ER 2 cap PO QID 12/20/23 12/20/23 48.75 mg-195 mg Cap] Dapagliflozin Propanediol [Farxiga] 10 mg PO DAILY 12/20/23 12/20/23 Digoxin [Digitek] 125 mcg PO DAILY 12/20/23 12/20/23 Finasteride [Proscar] 5 mg PO DAILY 12/20/23 12/20/23 Metoprolol Succinate [Toprol Xl] 25 mg PO DAILY 12/20/23 12/20/23 Multivitamin 1 tab PO DAILY 12/20/23 12/20/23 Pimavanserin Tartrate [Nuplazid] 34 mg PO DAILY 12/20/23 12/20/23 Potassium Chloride 20 meq PO DAILY 12/20/23 12/20/23 QUEtiapine [SEROquel] 50 mg PO BID 12/20/23 12/20/23 QUEtiapine [SEROquel] 100 mg PO HS 12/20/23 12/20/23 Spironolactone [Aldactone] 25 mg PO DAILY 12/20/23 12/20/23 traZODone [Desyrel] 50 mg PO HS 12/20/23 12/21/23 - PHYSICAL EXAM AT DISCHARGE General Appearance: positive: No acute distress, Alert Respiratory: positive: No respiratory distress, Breath sounds nml. negative: Wheezes Cardiovascular: positive: No murmur, No gallop Abdomen: negative: No distention, Tenderness, Guarding, Rebound Skin: positive: Color nml Extremities: positive: Non-tender, No pedal edema Neurologic/Psychiatric: negative: Oriented x3 Physical Exam Other/Comments: Blood at uretheral meatus due to trauma from Maxwell catheter insertion. - LABS Result Diagrams: 12/21/23 10:24 12/21/23 05:29 - TIME SPENT Time Spent in Discharge (Minutes): 35
[2023-12-21] MEDS: traZODone 50 MG TABLET PO SCH (21:01)
[2023-12-21] MEDS: VANCOMYCIN INJ 1 GM in SODIUM CHLORIDE 0.9% 250 ML IV SCH (21:02)
[2023-12-22 00:17] VITALS: O2SAT 96
[2023-12-22 02:33] VITALS: BP 107/76
== END 2023-12-22 02:35 | disposition short-term general hospital (02) | DRG 690 ==
LOC: EDUNIT# → ED 13:16 → MS2 15:17
PROVIDERS: ADMIT Family Medicine; ATTEND Family Medicine
PROC: 3E1K78Z Irrigation of Genitourinary Tract using Irrigating Substance, Via Natural or Artificial Opening (ICD-10-PCS; principal; 2023-12-20)
DX: N39.0 Urinary tract infection, site not specified (principal); R31.0 Gross hematuria; B95.2 Enterococcus as the cause of diseases classified elsewhere; B96.89 Other specified bacterial agents as the cause of diseases classified elsewhere; G20.A1 Parkinson's disease without dyskinesia, without mention of fluctuations; F02.80 Dementia in other diseases classified elsewhere, unspecified severity, without behavioral disturbance, psychotic disturbance, mood disturbance, and anxiety; Z86.73 Personal history of transient ischemic attack (TIA), and cerebral infarction without residual deficits; I48.91 Unspecified atrial fibrillation; Z79.01 Long term (current) use of anticoagulants; Z86.711 Personal history of pulmonary embolism; Z96.0 Presence of urogenital implants; I11.0 Hypertensive heart disease with heart failure; I50.9 Heart failure, unspecified; R32 Unspecified urinary incontinence; Z66 Do not resuscitate
CPT/HCPCS: 36415; 51700; 80048; 83605; 85014; 85018; 85025; 85610; 87040; 87150; 99284; 99285; A9270; J3370; 87181